=== PATIENT | male | born 1995 | race Hispanic/Latino ===

== ENCOUNTER 2024-04-10 22:22 | Observation (INO) | payer SELFPAY ==
[~2024-04-10] VITALS: Ht 177.8 cm; Wt 70.8 kg
[2024-04-10 22:45] VITALS: BP 139/75; PULSE 84; RESP 18; TEMP 98.8; O2SAT 99
[2024-04-10] MEDS ORDERED: ACETAMINOPHEN/CODEINE 300MG - 30MG TAB PO PRN (22:45)
[2024-04-10] MEDS ORDERED: Morphine 2mg Syringe 2 MG/ML SYR IV PRN (22:45)
[2024-04-10] MEDS: SODIUM CHLORIDE 0.9% 1000ML 1,000 ML IV SCH (23:42)
[2024-04-11] VITALS (8 sets, daily range): BP systolic 109–139; BP diastolic 69–76; PULSE 54–84; RESP 16–20; TEMP 97.5–98.8; O2SAT 99–100
[2024-04-11 01:34] LABS: BASOPHILS % 0.4 % (0.0-1.0); EOSINOPHILS # (AUTO) 0.1 (0.0-0.4); EOSINOPHILS % 1.5 % (0.0-6.0); HEMATOCRIT 38.8 % (38.2-49.6); LYMPHOCYTES # (AUTO) 1.6 (1.0-3.2); MEAN CORPUSCULAR HEMOGLOBIN 29.1 pg (28-32); MEAN CORPUSCULAR HGB CONC 33.5 g/dL (31-35); MONOCYTES # (AUTO) 0.8 (0.2-0.8); MONOCYTES % 11.6 % (4.4-11.3); NEUTROPHILS # (AUTO) 4.4 (2.1-6.9); NEUTROPHILS % 63.4 % (38.7-80.0); PLATELET COUNT 220 x10e3/uL (140-360); RED BLOOD COUNT 4.46 x10e6/uL (4.3-5.7); RED CELL DISTRIBUTION WIDTH 12.3 % (11.7-14.4); WHITE BLOOD COUNT 6.87 x10e3/uL (4.8-10.8)
[2024-04-11 01:45] LABS: ANION GAP 11.7 mmol/L (8-16); CALCIUM 10.9 mg/dL (8.4-10.2); CREATININE, SERUM 0.85 mg/dL (0.72-1.25); POTASSIUM 3.7 mmol/L (3.5-5.1)
[2024-04-11] MEDS ORDERED: BUPIVACAINE 0.5%/EPI 30 ML SDV INJ ONE (09:32)
[2024-04-11] MEDS ORDERED: LIDOCAINE HCL 2% LOCAL INJ 5 ML SDV VIAL INJ ONE (12:30)
[2024-04-11] MEDS ORDERED: KETOROLAC TROMETHAMINE 30 MG/ML VIAL ONE (12:30)
[2024-04-11] MEDS ORDERED: PROPOFOL IV EMULSION 10 MG/ML 20 ML VIAL ONE (12:30)
[2024-04-11] MEDS ORDERED: METOCLOPRAMIDE HCL 10 MG/2ML VIAL ONE (12:30)
[2024-04-11] MEDS ORDERED: SEVOFLURANE INHAL SOLN 250 ML PEN BTL ONE (12:30)
[2024-04-11] MEDS ORDERED: DEXAMETHASONE SOD PHOS INJ 4 MG/ML SDV ONE (12:30)
[2024-04-11] MEDS ORDERED: ONDANSETRON HCL INJ 2MG/ML 2ML 2 MG/ML VIAL ONE (12:30)
[2024-04-11] MEDS ORDERED: Morphine 10mg syringe 10 MG/ML INJ ONE (17:36)
[2024-04-11] MEDS ORDERED: FENTANYL CITRATE/PF 100MCG/2 ML INJ ONE (17:36)
[2024-04-11] MEDS ORDERED: BACTRIM DS TAB1 EACH PO (18:12)
[2024-04-11] MEDS ORDERED: tylenol #3 PO (18:12)
== END 2024-04-11 18:20 | disposition home or self-care (01) ==
LOC: MED/SURG3 22:22
PROVIDERS: ADMIT Urology; ATTEND Urology
DX: S31.31XA Laceration without foreign body of scrotum and testes, initial encounter (principal); S70.371A Other superficial bite of right thigh, initial encounter; S61.259A Open bite of unspecified finger without damage to nail, initial encounter; W54.0XXA Bitten by dog, initial encounter; Y93.02 Activity, running
CPT/HCPCS: 36415; 55180; 80048; 85025; 94799; G0378 ×2; J0690; J7030 ×2; J1100; J1885; J2001; J2270; J2405; J2765